=== PATIENT | female | born 1950 | race American Indian/Alaskan Native ===

== ENCOUNTER 2021-05-25 10:29 | Outpatient (CLI) | payer MEDICARE ==
--- NOTE | 2021-05-25 14:11 | Cat Scan Report ---
CTA CHEST, ABDOMEN, PELVIS, AND LOWER EXTREMITIES HISTORY: Iliac artery occlusion. COMPARISON: None. TECHNIQUE: Routine abdomen, pelvic and bilateral lower extremity CT angiogram performed utilizing int ravenous contrast. MIP/3D reformats were post-processed. CONTRAST: 100 ml of Omnipaque 350 FINDINGS: CTA ABDOMEN: Abdominal Aorta: No significant abnormality. Celiac Artery: Mild narrowing at its origin, less than 50%. Superior Mesenteric Artery: No significant abnormality. Renal Arteries: Right: No significant abnormality. Left: No significant abnormality. Inferior Mesenteric Artery: No significant abnormality. CTA PELVIS: RIGHT: Common Iliac Artery: There is approximately 60% narrowing of the right common iliac artery, just prox imal to its bifurcation due to calcified and noncalcified atherosclerotic disease. Internal Iliac Artery: No significant abnormality. External Iliac Artery: No significant abnormality. 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 I t remains occluded 3.9 cm up to just proximal to the bifurcation. There is opacification of the dista l aspect of the left common iliac artery, likely due to collateral flow. Extensive atherosclerotic ca lcifications within the mid and distal left common iliac artery. Internal Iliac Artery: Severely diminutive and poorly opacified throughout portions of its distal ext ent, likely due to significant atherosclerotic narrowing. External Iliac Artery: No significant abnormality. CTA LOWER EXTREMITIES: RIGHT LOWER EXTREMITY: Common Femoral Artery: No significant abnormality. Superficial Femoral Artery: No significant abnormality. Profunda Femoral Artery: No significant abnormality. Popliteal Artery: No significant abnormality. Anterior Tibial Artery: No significant abnormality. Tibioperoneal Trunk: No significant abnormality. Posterior Tibial Artery: No significant abnormality. Peroneal Artery: No significant abnormality. LEFT LOWER EXTREMITY: Common Femoral Artery: No significant abnormality. Superficial Femoral Artery: Multifocal areas of mild to moderate narrowing due to atherosclerotic dis ease, most pronounced distally. No evidence of occlusion. Profunda Femoral Artery: No significant abnormality. Popliteal Artery: Moderate areas of narrowing within its proximal segment. Anterior Tibial Artery: Poorly visualized beyond its proximal extent. Tibioperoneal Trunk: No significant abnormality. Posterior Tibial Artery: No significant abnormality. Peroneal Artery: No significant abnormality. Limited evaluation of the lower chest shows mild dependent atelectasis versus scarring in the lung ba ses. No evidence of focal pulmonary consolidation or edema. The heart is enlarged. No evidence of per icardial effusion. Limited evaluation of the abdomen and pelvis shows no evidence of acute findings within the liver, sp lurdes, adrenal glands, kidneys, pancreas, and gallbladder. No distended loops of intestines or focal b owel wall thickening. No pathologically enlarged lymph nodes. The appendix is normal in appearance. 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 It remains occluded 3.9 cm just proximal to its bifurcation. There is opacification of the distal aspect of the left comm on iliac artery, likely due to collateral flow. 2. There is approximately 60% narrowing of the right common iliac artery, just proximal to its bifurc ation due to calcified and noncalcified atherosclerotic disease. 3. Additional areas of overall moderate narrowing due to atherosclerotic disease is noted. This is pr imarily left-sided and involves the left internal iliac, superficial femoral, popliteal, and anterior tibial arteries, as described above. Signer Name: True Escoto MD Signed: 05/25/2021 2:06 PM Workstation Name: [id number]
== END 2021-05-25 10:30 | disposition home or self-care (01) ==
LOC: CT 10:29
PROVIDERS: ATTEND Internal Medicine Cardiovascular Disease
DX: I74.5 Embolism and thrombosis of iliac artery (principal); I77.9 Disorder of arteries and arterioles, unspecified; M79.602 Pain in left arm
CPT/HCPCS: 36415; 75635; 82565; 84520; Q9967